=== PATIENT | female | born 1980 ===

== ENCOUNTER 2017-02-09 03:38 | Observation (INO) | payer OTHER ==
[2017-02-09 03:47] VITALS: TEMP 98.6
[2017-02-09] MEDS ORDERED: Sodium Chloride 0.9% 1,000 ML IV STA (04:38)
[2017-02-09 04:43] VITALS: O2SAT 99
[2017-02-09 04:51] LABS: BASO % 0.4 % (0.0-2.0); EOS # 0.1 K/uL (0.0-0.7); EOS % 1.3 % (0.0-4.0); HEMATOCRIT 39.6 % (34.0-47.0); LYMPH # 3.1 K/uL (1.0-4.3); LYMPH % 40.7 % (20.0-40.0); MEAN CELL VOLUME 96.6 fl (81.0-99.0); MEAN CORPUSCULAR HEMOGLOBIN 33.3 pg (27.0-31.0); MEAN CORPUSCULAR HGB CONC 34.4 g/dL (33.0-37.0); MEAN PLATELET VOLUME 8.8 fl (7.2-11.7); MONO # 0.5 K/uL (0.0-0.8); NEUT # 3.9 K/uL (1.8-7.0); NEUT % 51.6 % (50.0-75.0); NRBC % 0.2 % (0.0-0.0); WHITE BLOOD COUNT 7.6 K/uL (4.8-10.8)
--- NOTE | 2017-02-09 05:02 | ED PDOC ---
HPI: Abdomen Chief Complaint (Provider): Abdominal pain History Per: Patient History/Exam Limitations: no limitations Onset/Duration Of Symptoms: Days Outside of [place] travel?: No Current Symptoms Are (Timing): Still Present Location Of Pain/Discomfort: Diffuse Associated Symptoms: Nausea. denies: Diarrhea Additional History Per: Patient <DebbiejenniferGinger - Last Filed: 02/09/17 06:36> <Pepito Bautista Jr. - Last Filed: 02/09/17 09:56> Time Seen by Provider: 02/09/17 03:49 Chief Complaint (Nursing): Abdominal Pain Additional Complaint(s): The patient is a 37yo female, no known pmhx, presents to the ED for evaluation of diffuse abdominal pain, present for the past two weeks but worse today. Pt reports she has not been able to tolerate PO intake and that "it does not sit well". She reports taking Zantax for her symptoms with some relief. She denies any associated nausea, vomiting or diarrhea. Pt offers no additional medical complaints. (Ginger Hurtado) Past Medical History Reviewed: Historical Data, Nursing Documentation, Vital Signs - Medical History PMH: No Chronic Diseases - Surgical History Surgical History: No Surg Hx - Family History Family History: States: Unknown Family Hx - Social History Current smoker - smoking cessation education provided: No Alcohol: None Drugs: Denies - Immunization History Hx Tetanus Toxoid Vaccination: (UTD, given last year) <Ginger Hurtado - Last Filed: 02/09/17 06:36> <Pepito Bautista Jr. - Last Filed: 02/09/17 09:56> Vital Signs: Last Vital Signs Temp 98.6 F 02/09/17 07:42 Pulse 69 02/09/17 07:42 Resp 19 02/09/17 07:42 BP 125/77 02/09/17 07:42 Pulse Ox 99 02/09/17 07:42 - Home Medications Home Medications: Ambulatory Orders Medication Instructions Recorded Cephalexin [Keflex] 500 mg PO QID #28 cap 05/18/14 Ibuprofen [Motrin] 600 mg PO Q6 PRN #20 tab 05/18/14 Ondansetron [Zofran] 4 mg PO Q8H PRN #6 tab 08/16/14 Sulfamethoxazole/Trimethopri 1 tab PO BID 10 Days 08/16/14 [Bactrim Ds 800 mg-160 mg] Azithromycin [Zithromax Z-Paul] 250 mg PO DAILY #5 tab 05/14/15 metroNIDAZOLE 0.75% [Metrogel 1 applic VAG DAILY #1 tube 12/29/15 Cream] - Allergies Allergies/Adverse Reactions: Allergies Allergy/AdvReac Type Severity Reaction Status Date / Time miconazole nitrate Allergy SWELLING Verified 12/29/15 17:14 [From Monistat 3] skin cleanser combination Allergy SWELLING Verified 12/29/15 17:14 no.17 [From Monistat 3] Review of Systems ROS Statement: Except As Marked, All Systems Reviewed And Found Negative Gastrointestinal: Positive for: Abdominal Pain. Negative for: Nausea, Vomiting , Diarrhea <Ginger Hurtado - Last Filed: 02/09/17 06:36> Physical Exam - Reviewed Nursing Documentation Reviewed: Yes Vital Signs Reviewed: Yes - Physical Exam Appears: Positive for: Non-toxic Head Exam: Positive for: ATRAUMATIC, NORMAL INSPECTION, NORMOCEPHALIC Skin: Positive for: Normal Color, Warm Eye Exam: Positive for: Normal appearance Neck: Positive for: Normal, Supple Cardiovascular/Chest: Positive for: Regular Rate, Rhythm Respiratory: Positive for: Normal Breath Sounds. Negative for: Respiratory Distress Gastrointestinal/Abdominal: Positive for: Soft, Tenderness (diffuse abdominal tenderness to palpation) Back: Positive for: Normal Inspection Extremity: Positive for: Normal ROM. Negative for: Deformity, Swelling Neurologic/Psych: Positive for: Alert, Oriented. Negative for: Motor/Sensory Deficits <Ginger Hurtado A - Last Filed: 02/09/17 06:36> - Laboratory Results Result Diagrams: 02/09/17 04:47 02/09/17 04:47 - ECG O2 Sat by Pulse Oximetry: 99 (RA) Pulse Ox Interpretation: Normal <Ginger Hurtado A - Last Filed: 02/09/17 06:36> - Laboratory Results Result Diagrams: 02/09/17 04:47 02/09/17 04:47 <Pepito Bautista Jr. - Last Filed: 02/09/17 09:56> Medical Decision Making <Ginger Hurtado - Last Filed: 02/09/17 06:36> <Pepito Bautista Jr. - Last Filed: 02/09/17 09:56> Medical Decision Making: Time: 040 Impression: Abdominal pain Differential: Gastritis, cholecystitis, colitis, pancreatitis Plan: -- CMP -- Lipase -- CBC -- IV NS 1L -- Morphine 4mg IV -- Zofran 4mg IV -- CT AP --Reassess Time: 611 CT AP IMPRESSION: 1. Cholelithiasis with trace pericholecystic fluid or wall edema along the liver interface. 2. Question of minimal nonspecific segmental colitis. 3. Otherwise negative CT abdomen/pelvis. Time: 632 US Abdomen ordered for further evaluation. Pt to be placed under ED Obs pending US abdomen. Scribe Attestation: Documented by Mary Baxter acting as a scribe for Ginger Hurtado MD Provider Scribe Attestation: All medical record entries made by the Scribe were at my direction and personally dictated by me. I have reviewed the chart and agree that the record accurately reflects my personal performance of the history, physical exam, medical decision making, and the department course for this patient. I have also personally directed, reviewed, and agree with the discharge instructions and disposition. (Ginger Hurtado) ED OBSERVATION Date of observation admission: 02/09/17 Time of observation admission: 06:33 <Ginger Hurtado - Last Filed: 02/09/17 06:36> <Pepito Bautista Jr. - Last Filed: 02/09/17 09:56> - Observation admission statement Patient is being placed in observation because:: Pt w/ diffuse abdominal pain (Ginger Hurtado) - Goals of Observation Goals of observation are:: Awaiting US Abdomen (Ginger Hurtado) - Progress Note Progress Note: 02/09/17 07:00 Pt to be signed out to Dr. Bautista pending US Abdomen and final disposition. (Ginger Hurtado) 02/09/17 09:54 Pt feels better. Ultrasound with "possible cholecystitis" but pt feels much better. Case d/w [facility] (Bill Balbuena EDGER MACHINE SETTER). Mr. Balbuena recommends d/c home and the remainder of the patient's work up can be performed as an outpatient. Clinical impression is biliary colic. Pt likes this game plan. (Pepito Bautista Jr.) Disposition - Disposition Disposition Time: 06:34 Patient Signed Over To: Pepito Bautista Jr. Handoff Comments: Pending US Abdomen and final dispo <Ginger Hurtado - Last Filed: 02/09/17 06:36> - Patient ED Disposition Is Patient to be Admitted: No - Disposition Disposition: Routine/Home - POA Present On Arrival: None <Pepito Bautista Jr. - Last Filed: 02/09/17 09:56> - Clinical Impression Clinical Impression: Biliary colic - Disposition Condition: STABLE
[2017-02-09 05:03] LABS: GLUCOSE,RANDOM 97 mg/dL (65-105)
[2017-02-09 05:04] LABS: ALB/GLOB RATIO 1.1 (1.0-2.1); BLOOD UREA NITROGEN 10 mg/dl (7-17); CALCIUM 8.9 mg/dL (8.4-10.2); CARBON DIOXIDE 22 mmol/L (22-30); CHLORIDE 107 mmol/L (98-107); GFR AFRICAN-AMERICAN > 60; SODIUM 138 mmol/l (132-148); TOTAL PROTEIN 7.2 G/DL (6.3-8.2)
[2017-02-09 05:05] LABS: ALKALINE PHOSPHATASE 60 U/L (38-126); ALT/SGPT 30 U/L (9-52); AST/SGOT 17 U/L (14-36); BILIRUBIN,TOTAL 0.3 mg/dl (0.2-1.3); LIPASE 268 U/L (23-300)
[2017-02-09] MEDS ORDERED: Sodium Chloride 0.9% 50 ML IV ONE (05:34)
[2017-02-09] MEDS ORDERED: Iohexol 300 100 ML IJ ONE (05:34)
[2017-02-09 07:43] VITALS: BP 125/77; PULSE 69; RESP 19
--- NOTE | 2017-02-09 08:42 | CT ---
PROCEDURE: CT Abdomen and Pelvis with contrast HISTORY: abdominal pain COMPARISON: None. TECHNIQUE: Contrast dose: Omnipaque 300, 95 cc Radiation dose: Total exam DLP = 1108 mGy-cm. This CT exam was performed using one or more of the following dose reduction techniques: Automated exposure control, adjustment of the mA and/or kV according to patient size, and/or use of iterative reconstruction technique. FINDINGS: LOWER THORAX: Calcified granuloma is noted at the left lower lobe laterally. LIVER: Unremarkable. No gross lesion or ductal dilatation. GALLBLADDER AND BILE DUCTS: Mildly distended with trace questioned pericholecystic fluid. Cholelithiasis is identified in the lumen. Consider potential cholecystitis however clinical correlation is advised. No obvious dilatation of the biliary tree is appreciable. PANCREAS: Unremarkable. No gross lesion or ductal dilatation. SPLEEN: No focal mass identified however there is mild splenomegaly to 14.4 cm. ADRENALS: Unremarkable. No mass. KIDNEYS AND URETERS: Unremarkable. No hydronephrosis. No solid mass. VASCULATURE: Unremarkable. No aortic aneurysm. BOWEL: Unremarkable. No obstruction. No gross mural thickening. Subcutaneous fatty changes in the majority of large bowel may reflect inflammatory bowel disease however clinical correlation is advised. APPENDIX: Normal appendix. PERITONEUM: Unremarkable. No free fluid. No free air. LYMPH NODES: Unremarkable. No enlarged lymph nodes. BLADDER: Unremarkable. REPRODUCTIVE: Unremarkable. BONES: No acute fracture. OTHER FINDINGS: None. IMPRESSION: 1. Borderline cholecystitis pattern clinically correlate further. Cholelithiasis noted within a distended gallbladder. Please see additional details above. 2. No bowel obstruction, mesenteric edema, ascites or free intrarenal gas identified. Inflammatory bowel changes may be present at the majority of large bowel where subcutaneous fatty deposition is appreciated on [id number] basis. Further clinical correlation is advised. Concordant V rad preliminary report submitted 02/09/2017.
--- NOTE | 2017-02-09 08:58 | US ---
HISTORY: abdominal pain COMPARISON: None. TECHNIQUE: Sonographic evaluation of the right upper quadrant of the abdomen. FINDINGS: LIVER: Measures 20.4 cm in length. Normal echogenicity of the liver parenchyma. A Mu's lobe is noted at the inferior margins of the right lobe liver. No mass. No intrahepatic bile duct dilatation. GALLBLADDER: Cholelithiasis identified within a thick-walled, distended gallbladder suspicious for possible cholecystitis. Clinically correlate. Common bile duct mildly dilated as well at the visualized segment without choledocholithiasis. COMMON BILE DUCT: Measures 7.2 mm. No stones. PANCREAS: Obscured by overlying bowel completely. RIGHT KIDNEY: Measures 10.9 cm in length. Normal echogenicity. No calculus, mass, or hydronephrosis. AORTA: No aneurysmal dilatation. IVC: Unremarkable. OTHER FINDINGS: None . IMPRESSION: Cholecystitis is in question as discussed above with no choledocholithiasis however the visualized common bile duct is dilated to 7.2 mm. Consider follow-up MRCP for further characterization. Further clinical correlation is advised.
== END 2017-02-09 10:17 | disposition home or self-care (01) ==
LOC: H.ER 03:38 → H.EROBSV 06:34
PROVIDERS: ADMIT Emergency Medicine; ATTEND Emergency Medicine
DX: R10.9 Unspecified abdominal pain (principal)
CPT/HCPCS: 74177; 76705; 80053; 81025; 83690; 85025; 96361; 96374; 96375; 99284; G0378; J2270; J2405; J7040; Q9967

== ENCOUNTER 2017-02-24 23:18 | Observation (INO) | payer OTHER ==
--- NOTE | 2017-02-25 00:09 | ED PDOC ---
HPI: Abdomen Time Seen by Provider: 02/24/17 23:34 Chief Complaint (Nursing): Abdominal Pain Chief Complaint (Provider): Abdominal pain History Per: Patient History/Exam Limitations: no limitations Onset/Duration Of Symptoms: Hrs (x 1) Current Symptoms Are (Timing): Still Present Context: Food (Salad) Location Of Pain/Discomfort: RUQ, Epigastric Quality Of Discomfort: Sharp, Stabbing Associated Symptoms: Nausea. denies: Vomiting Additional Complaint(s): 37 y/o female with a history of recently diagnosed gallstones presents to the ED with 1 hour of acute abdominal pain after eating salad. The patient describes the pain as sharp and stabbing, located in the right upper quadrant and epigastric region. She complains of nausea but no vomiting. Patient was seen for similar symptoms a few weeks ago and was diagnosed with gallstones. She has since followed up with a GI specialist and was seen by her Bill Balbuena APN. She is awaiting a surgical consult with Dr. Bharat Nuno. PMD: [facility] Past Medical History Reviewed: Historical Data, Nursing Documentation, Vital Signs Vital Signs: Last Vital Signs Temp 98.0 F 02/24/17 23:19 Pulse 86 02/24/17 23:19 Resp 16 02/24/17 23:19 BP 159/100 H 02/24/17 23:19 Pulse Ox 100 02/25/17 03:26 - Medical History PMH: No Chronic Diseases - Surgical History Surgical History: No Surg Hx - Family History Family History: States: Unknown Family Hx - Social History Current smoker - smoking cessation education provided: Yes (Half pack/day) - Immunization History Hx Tetanus Toxoid Vaccination: (UTD, given last year) - Home Medications Home Medications: Ambulatory Orders Medication Instructions Recorded Cephalexin [Keflex] 500 mg PO QID #28 cap 05/18/14 Ibuprofen [Motrin] 600 mg PO Q6 PRN #20 tab 05/18/14 Ondansetron [Zofran] 4 mg PO Q8H PRN #6 tab 08/16/14 Sulfamethoxazole/Trimethopri 1 tab PO BID 10 Days tab 08/16/14 [Bactrim Ds 800 mg-160 mg] Azithromycin [Zithromax Z-Paul] 250 mg PO DAILY #5 tab 05/14/15 metroNIDAZOLE 0.75% [Metrogel 1 applic VAG DAILY #1 tube 12/29/15 Cream] Acetaminophen with Codeine 2 tab PO Q6 PRN #8 tablet 02/09/17 [Tylenol with Codeine #3 Tablet] Ranitidine HCl [Zantac] 1 tab PO BID #30 tablet 02/09/17 - Allergies Allergies/Adverse Reactions: Allergies Allergy/AdvReac Type Severity Reaction Status Date / Time miconazole nitrate Allergy SWELLING Verified 12/29/15 17:14 [From Monistat 3] skin cleanser combination Allergy SWELLING Verified 12/29/15 17:14 no.17 [From Monistat 3] Review of Systems ROS Statement: Except As Marked, All Systems Reviewed And Found Negative Gastrointestinal: Positive for: Nausea, Abdominal Pain, Other (RUQ Tenderness). Negative for: Vomiting Physical Exam - Reviewed Nursing Documentation Reviewed: Yes Vital Signs Reviewed: Yes - Physical Exam Appears: Positive for: Non-toxic, No Acute Distress, Uncomfortable Head Exam: Positive for: ATRAUMATIC, NORMAL INSPECTION, NORMOCEPHALIC Skin: Positive for: Normal Color, Warm, Dry Eye Exam: Positive for: EOMI, Normal appearance, PERRL ENT: Positive for: Normal ENT Inspection Neck: Positive for: Normal, Painless ROM Cardiovascular/Chest: Positive for: Regular Rate, Rhythm. Negative for: Murmur Respiratory: Positive for: Normal Breath Sounds. Negative for: Respiratory Distress Gastrointestinal/Abdominal: Positive for: Soft, Tenderness (Right upper quadrant , epigastric region), Other (Gonzalez's Sign) Back: Positive for: Normal Inspection Extremity: Positive for: Normal ROM. Negative for: Pedal Edema, Deformity Neurologic/Psych: Positive for: Alert, Oriented - Laboratory Results Result Diagrams: 02/24/17 00:16 02/24/17 00:16 - ECG O2 Sat by Pulse Oximetry: 100 (RA) Pulse Ox Interpretation: Normal Medical Decision Making Medical Decision Making: Initial Impression: 37 y/o female with RUQ pain in setting of known gallbladder disease Time: 23:35 Initial Plan: --Ordered labs --Abdomen limited US --Trial of Toradol Time: 1:55 ULTRASOUND ABDOMEN LIMITED FINDINGS: Artifacts: Limited due to bowel gas shadowing. Limited due to shadowing from the ribs. Liver: The liver measures 17.1 cm. Limited evaluation of the liver due to shadowing.There is hepatic pedal flow in the portal vein. Gallbladder: Distended gallbladder with large gallstones in 5 mm gallbladder wall thickening.There was right upper quadrant tenderness during the sonographic examination. There is ringdown artifact involving the gallbladder suggestive of adenomyomatosis. Common bile duct: The common bile duct measures 7 mm which is dilated for patient's age. No stones. Pancreas: The pancreas is not well-seen. Right kidney: The right kidney measures 11.2 x 6.3 x 4.5 cm. No stones. No hydronephrosis. Aorta: Limited visualization of the abdominal aorta which is obscured due to bowel gas. Inferior vena cava: IVC is seen. IMPRESSION: 1. The common bile duct measures 7 mm which is dilated for patient's age. 2. Distended gallbladder with large gallstones in 5 mm gallbladder wall thickening. No pericholecystic edema. There was right upper quadrant tenderness during the sonographic examination. Correlation with clinical data/LFT is recommended to evaluate for acute on chronic cholecystitis. Similar findings were seen on prior examination from February. Time: 3:16 Clinical Impression: Cholelithiasis and intractable right upper quadrant pain --Patient reports persistent right upper quadrant pain despite repeat doses of analgesia --Patient will be hospitalized in med/surg for observation for pain management. --Care was discussed with Bill Balbuena APN, nurse practitioner with [facility] Scribe Attestation: Documented by Rob Garcia, acting as a scribe for Trino Ochoa MD Provider Scribe Attestation: All medical record entries made by the Scribe were at my direction and personally dictated by me. I have reviewed the chart and agree that the record accurately reflects my personal performance of the history, physical exam, medical decision making, and the department course for this patient. I have also personally directed, reviewed, and agree with the discharge instructions and disposition. Disposition - Clinical Impression Clinical Impression: Cholelithiases, Intractable abdominal pain - Patient ED Disposition Is Patient to be Admitted: Yes Discussed With Dr.: Bill Balbuena - Disposition Disposition: Transfer of Care Disposition Time: 03:16 Condition: FAIR - Pt Status Changed To: Hospital Disposition Of: Observation
[2017-02-25 00:20] LABS: BASO % 0.4 % (0.0-2.0); EOS # 0.1 K/uL (0.0-0.7); EOS % 1.8 % (0.0-4.0); HEMATOCRIT 40.5 % (34.0-47.0); LYMPH # 3.4 K/uL (1.0-4.3); LYMPH % 39.7 % (20.0-40.0); MEAN CELL VOLUME 96.4 fl (81.0-99.0); MEAN CORPUSCULAR HEMOGLOBIN 32.5 pg (27.0-31.0); MEAN CORPUSCULAR HGB CONC 33.7 g/dL (33.0-37.0); MEAN PLATELET VOLUME 8.7 fl (7.2-11.7); MONO # 0.6 K/uL (0.0-0.8); MONO % 6.9 % (0.0-10.0); NEUT # 4.3 K/uL (1.8-7.0); NEUT % 51.2 % (50.0-75.0); NRBC % 0.1 % (0.0-0.0); RED CELL DISTRIBUTION WIDTH 12.9 % (11.5-14.5); WHITE BLOOD COUNT 8.5 K/uL (4.8-10.8)
[2017-02-25 00:43] LABS: ALB/GLOB RATIO 1.3 (1.0-2.1); ALKALINE PHOSPHATASE 71 U/L (38-126); ALT/SGPT 30 U/L (9-52); AST/SGOT 17 U/L (14-36); BILIRUBIN,TOTAL 0.4 mg/dl (0.2-1.3); BLOOD UREA NITROGEN 13 mg/dl (7-17); CALCIUM 9.3 mg/dL (8.4-10.2); CARBON DIOXIDE 23 mmol/L (22-30); CHLORIDE 105 mmol/L (98-107); GFR AFRICAN-AMERICAN > 60; GLUCOSE,RANDOM 88 mg/dL (65-105); LIPASE 326 U/L (23-300); POTASSIUM 3.9 MMOL/L (3.6-5.0); SODIUM 139 mmol/l (132-148); TOTAL PROTEIN 7.5 G/DL (6.3-8.2)
--- NOTE | 2017-02-25 01:55 | US ---
EXAM: US Abdomen Limited, Right Upper Quadrant CLINICAL HISTORY: 37 years old, female; Pain; Abdominal pain; Rebound pain; Right upper quadrant (ruq) TECHNIQUE: Real-time ultrasound of the right upper quadrant with image documentation. 2 Real time cine loop images are submitted. 246 images are submitted. COMPARISON: US - ABDOMEN LIMITED (GB INCLUDED) 02/09/2017 6:57:10 AM FINDINGS: Artifacts: Limited due to bowel gas shadowing. Limited due to shadowing from the ribs. Liver: The liver measures 17.1 cm. Limited evaluation of the liver due to shadowing.There is hepatic pedal flow in the portal vein. Gallbladder: Distended gallbladder with large gallstones in 5 mm gallbladder wall thickening.There was right upper quadrant tenderness during the sonographic examination. There is ringdown artifact involving the gallbladder suggestive of adenomyomatosis. Common bile duct: The common bile duct measures 7 mm which is dilated for patient's age. No stones. Pancreas: The pancreas is not well-seen. Right kidney: The right kidney measures 11.2 x 6.3 x 4.5 cm. No stones. No hydronephrosis. Aorta: Limited visualization of the abdominal aorta which is obscured due to bowel gas. Inferior vena cava: IVC is seen. IMPRESSION: 1. The common bile duct measures 7 mm which is dilated for patient's age. 2. Distended gallbladder with large gallstones in 5 mm gallbladder wall thickening. No pericholecystic edema. There was right upper quadrant tenderness during the sonographic examination. Correlation with clinical data/LFT is recommended to evaluate for acute on chronic cholecystitis. Similar findings were seen on prior examination from February 09, 2017.
[2017-02-25] MEDS ORDERED: HYDROmorphone 0.5 mg/0.5 ml ISec IVP STA (02:32)
[2017-02-25] MEDS ORDERED: Sodium Chloride 0.9% 1,000 ML IV STA (04:53)
[2017-02-25 08:02] LABS: BASO % 0.3 % (0.0-2.0); EOS # 0.1 K/uL (0.0-0.7); EOS % 1.5 % (0.0-4.0); HEMATOCRIT 38.5 % (34.0-47.0); LYMPH # 2.2 K/uL (1.0-4.3); MEAN CELL VOLUME 96.5 fl (81.0-99.0); MEAN CORPUSCULAR HEMOGLOBIN 32.2 pg (27.0-31.0); MEAN CORPUSCULAR HGB CONC 33.4 g/dL (33.0-37.0); MONO # 0.5 K/uL (0.0-0.8); MONO % 6.4 % (0.0-10.0); NEUT # 4.4 K/uL (1.8-7.0); NEUT % 60.8 % (50.0-75.0); NRBC % 0.1 % (0.0-0.0); RED CELL DISTRIBUTION WIDTH 12.9 % (11.5-14.5); WHITE BLOOD COUNT 7.2 K/uL (4.8-10.8)
[2017-02-25 08:20] LABS: ALB/GLOB RATIO 1.3 (1.0-2.1); ALKALINE PHOSPHATASE 52 U/L (38-126); ALT/SGPT 42 U/L (9-52); AST/SGOT 59 U/L (14-36); BILIRUBIN,TOTAL 0.5 mg/dl (0.2-1.3); BLOOD UREA NITROGEN 15 mg/dl (7-17); CALCIUM 8.8 mg/dL (8.4-10.2); CARBON DIOXIDE 23 mmol/L (22-30); CHLORIDE 107 mmol/L (98-107); GFR AFRICAN-AMERICAN > 60; GLUCOSE,RANDOM 87 mg/dL (65-105); POTASSIUM 4.2 MMOL/L (3.6-5.0); SODIUM 141 mmol/l (132-148); TOTAL PROTEIN 6.5 G/DL (6.3-8.2)
[2017-02-25 09:03] VITALS: BP 100/67; PULSE 68; RESP 20; TEMP 98.1; O2SAT 96
--- NOTE | 2017-02-25 11:28 | CP.PCM.HP ---
History of Present Illness - History of Present Illness History of Present Illness: pt admitted for biliary colic. still w/ ruq pain despite meds. does not wish for surgery to be completed in [facility]. no f/c, n/v/d at present. us noted. ?? worse than outpt case d/c w/ dr nicholas who pt has appt w/ 03/09/17 Present on Admission - Present on Admission Any Indicators Present on Admission: No Review of Systems - Gastrointestinal Gastrointestinal: As Per HPI, Abdominal Pain Past Patient History - Past Medical History & Family History Past Medical History?: Yes - Past Social History Smoking Status: Heavy Smoker > 10 Cigarettes Daily - CARDIAC Hx Cardiac Disorders: No - PULMONARY Hx Respiratory Disorders: No - NEUROLOGICAL Hx Neurological Disorder: No - HEENT Hx HEENT Problems: No - RENAL Hx Chronic Kidney Disease: No - ENDOCRINE/METABOLIC Hx Endocrine Disorders: No - HEMATOLOGICAL/ONCOLOGICAL Hx Blood Disorders: No Hx AIDS: No Hx Human Immunodeficiency Virus (HIV): No - INTEGUMENTARY Hx Dermatological Problems: No - MUSCULOSKELETAL/RHEUMATOLOGICAL Hx Musculoskeletal Disorders: No Hx Falls: No - GASTROINTESTINAL Hx Gastrointestinal Disorders: No - GENITOURINARY/GYNECOLOGICAL Hx Genitourinary Disorders: Yes (ovarian cysts, lost 1 fallopian tube) - PSYCHIATRIC Hx Psychophysiologic Disorder: No Hx Substance Use: No - SURGICAL HISTORY Hx Surgeries: Yes (ruptured ectopic) - ANESTHESIA Hx Anesthesia: Yes Hx Anesthesia Reactions: No Hx Malignant Hyperthermia: No Meds Home Medications: Home Medication List Medication Instructions Recorded Confirmed Type Ondansetron ODT [Zofran ODT] 4 mg PO Q8 PRN #10 odt 02/25/17 Rx oxyCODONE/Acetaminophen [Percocet 1 tab PO Q4 PRN #10 tab 02/25/17 Rx 5/325 mg Tab] Allergies/Adverse Reactions: Allergies Allergy/AdvReac Type Severity Reaction Status Date / Time miconazole nitrate Allergy SWELLING Verified 12/29/15 17:14 [From Monistat 3] skin cleanser combination Allergy SWELLING Verified 12/29/15 17:14 no.17 [From Monistat 3] Physical Exam - Constitutional Appears: Well, Non-toxic, No Acute Distress - Head Exam Head Exam: ATRAUMATIC, NORMAL INSPECTION, NORMOCEPHALIC - Eye Exam Eye Exam: EOMI, Normal appearance, PERRL Pupil Exam: NORMAL ACCOMODATION, PERRL - ENT Exam ENT Exam: Mucous Membranes Moist, Normal Exam - Neck Exam Neck exam: Positive for: Normal Inspection - Respiratory Exam Respiratory Exam: Clear to Auscultation Bilateral, NORMAL BREATHING PATTERN - Cardiovascular Exam Cardiovascular Exam: REGULAR RHYTHM, RRR, +S1, +S2 - GI/Abdominal Exam GI & Abdominal Exam: Normal Bowel Sounds, Soft. absent: Tenderness - Extremities Exam Extremities exam: Positive for: full ROM, normal capillary refill, normal inspection, pedal pulses present - Back Exam Back exam: NORMAL INSPECTION - Neurological Exam Neurological exam: Alert, CN II-XII Intact, Normal Gait, Oriented x3, Reflexes Normal - Psychiatric Exam Psychiatric exam: Normal Affect, Normal Mood - Skin Skin Exam: Dry, Intact, Normal Color, Warm Results - Vital Signs Recent Vital Signs: Last Vital Signs Temp 98.1 F 02/25/17 09:03 Pulse 68 02/25/17 09:03 Resp 20 02/25/17 09:03 BP 100/67 02/25/17 09:03 Pulse Ox 96 02/25/17 09:03 - Labs Result Diagrams: 02/25/17 07:30 02/25/17 06:30 Labs: Laboratory Results - last 24 hr 02/24/17 02/24/17 02/25/17 00:16 00:16 06:30 WBC 8.5 RBC 4.21 Hgb 13.7 Hct 40.5 MCV 96.4 MCH 32.5 H MCHC 33.7 RDW 12.9 Plt Count 190 MPV 8.7 Neut % (Auto) 51.2 Lymph % (Auto) 39.7 Powell % (Auto) 6.9 Eos % (Auto) 1.8 Baso % (Auto) 0.4 Neut # 4.3 Lymph # 3.4 Powell # 0.6 Eos # 0.1 Baso # 0.0 Sodium 139 141 Potassium 3.9 4.2 Chloride 105 107 Carbon Dioxide 23 23 Anion Gap 15 15 BUN 13 15 Creatinine 0.9 1.0 Est GFR ( Amer) > 60 > 60 Est GFR (Non-Af Amer) > 60 > 60 Random Glucose 88 87 Calcium 9.3 8.8 Total Bilirubin 0.4 0.5 AST 17 59 H D ALT 30 42 Alkaline Phosphatase 71 52 Total Protein 7.5 6.5 Albumin 4.3 3.6 Globulin 3.2 2.9 Albumin/Globulin Ratio 1.3 1.3 Lipase 326 H 02/25/17 07:30 WBC 7.2 RBC 3.99 Hgb 12.8 Hct 38.5 MCV 96.5 MCH 32.2 H MCHC 33.4 RDW 12.9 Plt Count 162 MPV 9.0 Neut % (Auto) 60.8 Lymph % (Auto) 31.0 Powell % (Auto) 6.4 Eos % (Auto) 1.5 Baso % (Auto) 0.3 Neut # 4.4 Lymph # 2.2 Powell # 0.5 Eos # 0.1 Baso # 0.0 Sodium Potassium Chloride Carbon Dioxide Anion Gap BUN Creatinine Est GFR ( Amer) Est GFR (Non-Af Amer) Random Glucose Calcium Total Bilirubin AST ALT Alkaline Phosphatase Total Protein Albumin Globulin Albumin/Globulin Ratio Lipase Assessment & Plan (1) DVT prophylaxis Assessment and Plan: scd nad aehose ambulation Status: Acute (2) Cholelithiases Assessment and Plan: pain control ouptpt surgery f/u Status: Acute (3) Biliary colic Assessment and Plan: liquid diet, adv as lashae ?dc today if pain controlled Status: Acute Decision To Admit - Pt Status Changed To: Hospital Disposition Of: Observation - . Bed Request Type: Med/Surg Admitting Physician: Natalia Boyd
--- NOTE | 2017-02-25 20:47 | CP.PCM.DIS ---
Provider - Provider Date of Admission: 02/25/17 03:16 Attending physician: Natalia Boyd MD Time Spent in preparation of Discharge (in minutes): 15 Diagnosis - Discharge Diagnosis (1) DVT prophylaxis Status: Acute (2) Cholelithiases Status: Acute (3) Biliary colic Status: Acute Hospital Course - Lab Results Lab Results: Most Recent Lab Values WBC 7.2 K/uL (4.8-10.8) 02/25/17 07:30 RBC 3.99 Mil/uL (3.80-5.20) 02/25/17 07:30 Hgb 12.8 g/dL (12.0-16.0) 02/25/17 07:30 Hct 38.5 % (34.0-47.0) 02/25/17 07:30 MCV 96.5 fl (81.0-99.0) 02/25/17 07:30 MCH 32.2 pg (27.0-31.0) H 02/25/17 07:30 MCHC 33.4 g/dL (33.0-37.0) 02/25/17 07:30 RDW 12.9 % (11.5-14.5) 02/25/17 07:30 Plt Count 162 K/uL (130-400) 02/25/17 07:30 MPV 9.0 fl (7.2-11.7) 02/25/17 07:30 Neut % (Auto) 60.8 % (50.0-75.0) 02/25/17 07:30 Lymph % (Auto) 31.0 % (20.0-40.0) 02/25/17 07:30 Greene % (Auto) 6.4 % (0.0-10.0) 02/25/17 07:30 Eos % (Auto) 1.5 % (0.0-4.0) 02/25/17 07:30 Baso % (Auto) 0.3 % (0.0-2.0) 02/25/17 07:30 Neut # 4.4 K/uL (1.8-7.0) 02/25/17 07:30 Lymph # 2.2 K/uL (1.0-4.3) 02/25/17 07:30 Greene # 0.5 K/uL (0.0-0.8) 02/25/17 07:30 Eos # 0.1 K/uL (0.0-0.7) 02/25/17 07:30 Baso # 0.0 K/uL (0.0-0.2) 02/25/17 07:30 Sodium 141 mmol/l (132-148) 02/25/17 06:30 Potassium 4.2 MMOL/L (3.6-5.0) 02/25/17 06:30 Chloride 107 mmol/L (98-107) 02/25/17 06:30 Carbon Dioxide 23 mmol/L (22-30) 02/25/17 06:30 Anion Gap 15 (10-20) 02/25/17 06:30 BUN 15 mg/dl (7-17) 02/25/17 06:30 Creatinine 1.0 mg/dL (0.7-1.2) 02/25/17 06:30 Est GFR ( Amer) > 60 02/25/17 06:30 Est GFR (Non-Af Amer) > 60 02/25/17 06:30 Random Glucose 87 mg/dL (65-105) 02/25/17 06:30 Calcium 8.8 mg/dL (8.4-10.2) 02/25/17 06:30 Total Bilirubin 0.5 mg/dl (0.2-1.3) 02/25/17 06:30 AST 59 U/L (14-36) H D 02/25/17 06:30 ALT 42 U/L (9-52) 02/25/17 06:30 Alkaline Phosphatase 52 U/L (38-126) 02/25/17 06:30 Total Protein 6.5 G/DL (6.3-8.2) 02/25/17 06:30 Albumin 3.6 g/dL (3.5-5.0) 02/25/17 06:30 Globulin 2.9 gm/dL (2.2-3.9) 02/25/17 06:30 Albumin/Globulin Ratio 1.3 (1.0-2.1) 02/25/17 06:30 Lipase 326 U/L (23-300) H 02/24/17 00:16 Discharge Exam - Head Exam Head Exam: ATRAUMATIC, NORMAL INSPECTION, NORMOCEPHALIC Discharge Plan - Discharge Medications Prescriptions: Ondansetron ODT [Zofran ODT] 4 mg PO Q8 PRN #10 odt PRN Reason: Nausea/Vomiting oxyCODONE/Acetaminophen [Percocet 5/325 mg Tab] 1 tab PO Q4 PRN #10 tab PRN Reason: Pain, Severe (8-10) - Follow Up Plan Condition: FAIR Disposition: HOME/ ROUTINE Instructions: Acute Abdominal Pain (DC) Additional Instructions: pt doing well, lashae po. pain controlled. no /c, n/v/d. for dc. pt to f/u monday w/ rmg and will set up surgery outpt. final dx-biliary colic. cholelithiasis. rted prn, med spe rmed rec, bland diet, low fat
== END 2017-02-25 13:37 | disposition home or self-care (01) ==
LOC: H.ER 23:18 → H.ERHOLD 02-25 03:16 → H.MEDSURG1 02-25 04:10
PROVIDERS: ADMIT Family Medicine; ATTEND Family Medicine
DX: K80.20 Calculus of gallbladder without cholecystitis without obstruction (principal); F17.200 Nicotine dependence, unspecified, uncomplicated; K82.8 Other specified diseases of gallbladder
CPT/HCPCS: 36415; 76705; 80053; 81025; 83690; 85025; 96374; 96375; 99284; G0378; J1170; J1885; J2270; J7040

== ENCOUNTER 2018-10-01 06:19 | Emergency (ER) | payer SELFPAY ==
[2018-10-01 06:33] VITALS: RESP 16
[2018-10-01 07:04] VITALS: BP 133/94
[2018-10-01] MEDS ORDERED: Naproxen 500 MG TAB PO STA (07:07)
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
[2018-10-01] MEDS ORDERED: Naproxen 500 MG TAB PO ONE (07:28)
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
[2018-10-01 09:57] VITALS: PULSE 94; TEMP 98
[2018-10-01 14:57] VITALS: O2SAT 100
== END 2018-10-01 09:58 | disposition home or self-care (01) ==
LOC: H.ER 06:19
DX: K13.70 Unspecified lesions of oral mucosa (principal); S00.83XA Contusion of other part of head, initial encounter; Z20.2 Contact with and (suspected) exposure to infections with a predominantly sexual mode of transmission; Y04.8XXA Assault by other bodily force, initial encounter